=== PATIENT | female | born 1980 | race Caucasian/White ===

== ENCOUNTER 2018-05-27 15:03 | Emergency (ER) | payer OTHER ==
[~2018-05-27] VITALS: Ht 160 cm; Wt 60.0 kg
[2018-05-27 16:16] VITALS: BP 109/72
== END 2018-05-27 16:22 | disposition home or self-care (01) ==
LOC: ED 16:16
DX: S61.431A Puncture wound without foreign body of right hand, initial encounter (principal); W46.0XXA Contact with hypodermic needle, initial encounter; Y93.89 Activity, other specified; Y99.8 Other external cause status; Y92.89 Other specified places as the place of occurrence of the external cause
CPT/HCPCS: 36415; 84460; 86705; 86706; 86803; 87340; 87806; 99284; G0475

== ENCOUNTER → 2018-07-31 | Outpatient (CLI) | payer OTHER | END | disposition home or self-care (01) | LOC: RAD 20:05 | PROVIDERS: ATTEND Family Medicine | DX: R10.9 Unspecified abdominal pain (principal) | CPT/HCPCS: 76700 ==

== ENCOUNTER → 2019-02-11 | Outpatient (CLI) | payer OTHER ==
[~2019-02-11] MED LIST: BUPR200T2 PO; LEVO125T5 PO; [UNRECOGNIZED DRUG - CODE] PO
== END | disposition home or self-care (01) ==
LOC: CFH 12:25
PROVIDERS: ATTEND Nurse Practitioner Family
DX: M51.27 Other intervertebral disc displacement, lumbosacral region (principal); M48.07 Spinal stenosis, lumbosacral region; M46.87 Other specified inflammatory spondylopathies, lumbosacral region
CPT/HCPCS: 72148

== ENCOUNTER → 2019-02-11 | Outpatient (CLI) | payer OTHER ==
[2019-02-11 09:59] LABS: BASOPHILS # (AUTO) 0.03 x10^3/uL (0-0.1); BASOPHILS % (AUTO) 1 % (0-1); EOSINOPHILS # (AUTO) 0.07 x10^3/uL (0-0.4); EOSINOPHILS % (AUTO) 1 % (1-7); LYMPHOCYTES # (AUTO) 1.56 x10^3/uL (1-3.4); LYMPHOCYTES % (AUTO) 29 % (22-44); MD NO; MEAN CORPUSCULAR HEMOGLOBIN 30.3 pg (27.0-34.8); MEAN CORPUSCULAR HGB CONC 34.2 g/dL (32.4-35.8); MEAN CORPUSCULAR VOLUME 88.6 fL (80-100); MEAN PLATELET VOLUME 9.6 fL (7.4-10.4); MONOCYTES % (AUTO) 9 % (2-9); NEUTROPHILS # (AUTO) 3.28 x10^3/uL (1.8-6.8); NEUTROPHILS % (AUTO) 60 % (42-75); PLATELET COUNT 227 x10^3/uL (130-400); RED BLOOD COUNT 4.72 x10^6/uL (3.82-5.3); RED CELL DISTRIBUTION WIDTH 12.6 % (9.6-15.2)
[2019-02-11 10:09] LABS: ALBUMIN 3.8 g/dL (3.4-5.0); ANION GAP 4 mmol/L (5-15); CALCIUM 8.9 mg/dL (8.5-10.1); CHLORIDE 110 mmol/L (98-107)
[2019-02-11 10:13] LABS: ALANINE AMINOTRANSFERASE 23 U/L (12-78); ALKALINE PHOSPHATASE 30 U/L (45-117); BILIRUBIN,TOTAL 0.6 mg/dL (0.2-1.0); CREATININE 0.98 mg/dL (0.55-1.02); TOTAL PROTEIN 7.2 g/dL (6.4-8.2)
== END | disposition home or self-care (01) ==
LOC: STAR 09:09
PROVIDERS: ATTEND Obstetrics & Gynecology Gynecology
DX: Z01.818 Encounter for other preprocedural examination (principal); Z97.5 Presence of (intrauterine) contraceptive device
CPT/HCPCS: 36415; 80053; 85025

== ENCOUNTER 2019-02-17 13:34 | Day surgery (SDC) | payer OTHER ==
[~2019-02-17] VITALS: Ht 160 cm; Wt 62.1 kg
[2019-02-17] MEDS ORDERED: LACTATED RINGERS 1,000 ML IV SCH (14:03)
[2019-02-17 14:14] LABS: HCG UR SG 1.028 (1.003-1.030)
[2019-02-17 14:27] VITALS: BP 102/69
[2019-02-17] MEDS ORDERED: FENTANYL PF 100 MCG/2ML ONE ×2 (15:02→17:39)
[2019-02-17] MEDS ORDERED: MIDAZOLAM 1 MG/ML, 2ML ONE (15:02)
[2019-02-17] MEDS ORDERED: ACETAMINOPHEN 500 MG TABLET PO ONE (15:30)
[2019-02-17] MEDS ORDERED: SCOPOLAMINE PATCH, 1.5MG PATCH.TD72 TD ONE (15:30)
[2019-02-17] MEDS ORDERED: GABAPENTIN 300 MG CAPSULE PO ONE (15:30)
[2019-02-17] MEDS ORDERED: ONDANSETRON 2MG/ML, 2ML ONE (16:05)
[2019-02-17] MEDS ORDERED: DEXAMETHASONE 4 MG/ML, 1ML ONE (16:05)
[2019-02-17] MEDS ORDERED: PROPOFOL 10 MG/ML, 20ML ONE (16:05)
[2019-02-17] MEDS ORDERED: ROCURONIUM 10 MG/ML,10ML ONE (16:05)
[2019-02-17] MEDS ORDERED: KETOROLAC 30 MG/1 ML ONE (16:05)
[2019-02-17] MEDS ORDERED: SUCCINYLCHOLINE 20 MG/ML, 10ML ONE (16:05)
[2019-02-17] MEDS ORDERED: KETOROLAC 30 MG/1 ML IV PRN (16:30)
[2019-02-17] MEDS ORDERED: ALBUTEROL SULFATE 2.5 MG/3 ML NPPB PRN (16:30)
[2019-02-17] MEDS ORDERED: OXYcodone 5 MG/5 ML ORAL.SOL UDC PO PRN (16:30)
[2019-02-17] MEDS ORDERED: ONDANSETRON 2MG/ML, 2ML IVPush PRN (16:30)
[2019-02-17] MEDS ORDERED: METOCLOPRAMIDE 5 MG/ML, 2ML IV PRN (16:30)
[2019-02-17] MEDS ORDERED: LABETALOL 5MG/ML, 20ML IV PRN (16:30)
[2019-02-17] MEDS ORDERED: PROMETHAZINE 25 MG/ML, 1ML IV PRN (16:30)
[2019-02-17] MEDS ORDERED: MEPERIDINE/PF 25MG/0.5ML IVPush PRN (16:30)
[2019-02-17] MEDS ORDERED: HYDROmorphone 1 MG/ML, 1ML INJ IV PRN (16:30)
[2019-02-17] MEDS ORDERED: hydrALAzine 20 MG/ML, 1ML IV PRN (16:30)
[2019-02-17] MEDS ORDERED: OXYcodone 5 MG/5 ML ORAL.SOL UDC ONE (17:39)
[2019-02-17] MEDS: FENTANYL PF 100 MCG/2ML IV PRN ×3 (17:41→18:05)
[2019-02-17] MEDS ORDERED: HYDROcodone/APAP 7.5-325MG/15ML UDC ONE (17:45)
[2019-02-17] MEDS ORDERED: HYDROcodone/APAP 7.5-325MG/15ML UDC PO PRN (19:00)
[2019-02-17] MEDS ORDERED: OXYcodone/APAP 5/325MG TABLET PO PRN (19:30)
[2019-02-17] MEDS ORDERED: morphine SULFATE 10 MG/ML, 1ML IV PRN (19:30)
== END 2019-02-17 21:10 | disposition home or self-care (01) ==
LOC: OR 13:34 → 4NOR 19:00 → OR 21:10
PROVIDERS: ATTEND Obstetrics & Gynecology Gynecology
DX: N93.9 Abnormal uterine and vaginal bleeding, unspecified (principal); J45.909 Unspecified asthma, uncomplicated; N94.6 Dysmenorrhea, unspecified; E03.9 Hypothyroidism, unspecified; F32.9 Major depressive disorder, single episode, unspecified; Z98.890 Other specified postprocedural states
CPT/HCPCS: 58301; 58553; 81025; 88300; 88305; J0330; J1100; J1885; J2250; J2405; J2704; J3010; J7120; G0378

== ENCOUNTER → 2021-05-04 | Outpatient (CLI) | payer OTHER | END | disposition home or self-care (01) | LOC: CFH 08:11 | PROVIDERS: ATTEND Nurse Practitioner Family | DX: N60.01 Solitary cyst of right breast (principal); R92.1 Mammographic calcification found on diagnostic imaging of breast; N63.11 Unspecified lump in the right breast, upper outer quadrant | CPT/HCPCS: 76642; 77062; 77066; G0279 ==